=== PATIENT | male | born 1945 | race Caucasian/White ===

== ENCOUNTER 2018-04-25 13:29 | Inpatient (IN) | payer OTHER, MEDICAID ==
[2018-04-25] MEDS: ACETAMINOPHEN 500 MG TAB PO ×2 (14:28→16:11)
[2018-04-25] MEDS: SODIUM CHLORIDE 0.9% 1L BAG IV* (14:28)
[2018-04-25] MEDS: IBUPROFEN 800 MG TAB PO (14:28)
[2018-04-25 14:36] LABS: ADD MAN DIFF? NO
[2018-04-25 14:40] LABS: WHITE BLOOD COUNT 15.8 10^3/ul (4.8-10.8)
[2018-04-25 14:40] LABS: BASOPHILS % 0.3 % (0.0-2.0); EOSINOPHILS % 0.1 % (0.0-7.0); HEMOGLOBIN 12.4 g/dl (14.0-18.0); LYMPHOCYTES # 0.7 10^3/ul (0.8-2.9); LYMPHOCYTES % 4.5 % (15.0-51.0); MEAN CORPUSCULAR HEMOGLOBIN 29.8 pg (29.0-33.0); MEAN CORPUSCULAR HGB CONC 32.6 g/dl (32.0-37.0); MEAN CORPUSCULAR VOLUME 91.3 fl (82.0-101.0); MONOCYTE # 0.6 10^3/ul (0.3-0.9); MONOCYTES % 3.9 % (0.0-11.0); NEUTROPHIL # 14.3 10^3/ul (1.6-7.5); NEUTROPHILS % 90.6 % (39.0-77.0); PLATELET COUNT 304 10^3/UL (140-415); RED BLOOD COUNT 4.16 10^6/ul (4.70-6.10); RED CELL DISTRIBUTION WIDTH 12.3 % (11.5-14.5)
[2018-04-25 14:52] LABS: ADD UMIC YES; UR ASCORBIC ACID 20 mg/dL (NEGATIVE); UR BILIRUBIN (Dip) NEGATIVE (NEGATIVE); UR BLOOD (Dip) 1+ mg/dL (NEGATIVE); UR CLARITY SLIGHTLY CLOUDY (CLEAR); UR COLOR YELLOW (YELLOW); UR GLUCOSE (Dip) NEGATIVE (NEGATIVE); UR KETONES (Dip) 1+ mg/dL (NEGATIVE); UR LEUKOCYTE ESTERASE (Dip) NEGATIVE Leu/ul (NEGATIVE); UR MUCUS MODERATE /HPF (NONE SEEN); UR NITRITE (Dip) NEGATIVE (NEGATIVE); UR RBC 7 /HPF (0-5); UR SPECIFIC GRAVITY (Dip) 1.023 (1.003-1.030); UR TOTAL PROTEIN (Dip) 1+ mg/dl (NEGATIVE); UR UROBILINOGEN (Dip) 1+ mg/dL (NEGATIVE); UR WBC 3 /HPF (0-5)
[2018-04-25 14:57] LABS: ALANINE AMINOTRANSFERASE 35 IU/L (13-69); ALBUMIN 4.7 g/dl (3.3-4.9); ALBUMIN/GLOBULIN RATIO 1.09; ALKALINE PHOSPHATASE 221 IU/L (42-121); ANION GAP 16 (5-13); ASPARTATE AMINO TRANSFERASE 55 IU/L (15-46); BILIRUBIN,INDIRECT 0.6 mg/dl (0-1.1); BILIRUBIN,TOTAL 0.6 mg/dl (0.2-1.3); BLOOD UREA NITROGEN 18 mg/dl (7-20); CALCIUM 9.7 mg/dl (8.4-10.2); CARBON DIOXIDE 24 mmol/L (21-31); CHLORIDE 101 mmol/L (97-110); CREATININE 1.08 mg/dl (0.61-1.24); Estimated GFR > 60 mL/min (>60); GLUCOSE 133 mg/dl (70-220); POTASSIUM 3.6 mmol/L (3.5-5.1); SODIUM 141 mmol/L (135-144)
[2018-04-25 15:00] LABS: INR 0.98; PROTIME 13.1 Sec (11.9-14.9)
[2018-04-25 15:01] LABS: PARTIAL THROMBOPLASTIN TIME 31.9 Sec (23.0-35.0)
[2018-04-25 15:08] LABS: TROPONIN-I < 0.012 ng/ml (0.000-0.120)
[2018-04-25] MEDS: SOD CHLORIDE 0.9% 100 ML (17:22)
[2018-04-25] MEDS: IOHEXOL 300MG/ML 150 ML BTL (17:23)
[2018-04-25] MEDS: PIPER-TAZO 3.375 GM IV (PMX) 100 ML IVPB (17:45)
[2018-04-25] MEDS ORDERED: ACETAMINOPHEN 325 MG TAB PO (18:30)
[2018-04-25] MEDS ORDERED: ONDANSETRON 4 MG INJ IV ×2 (18:30→19:00)
[2018-04-25] MEDS: VANCOMYCIN 1 GM (PMX) 250 ML IVPB (18:44)
[2018-04-25] MEDS ORDERED: NACL 0.9% 3 ML SYG IV (19:00)
[2018-04-25] MEDS ORDERED: HYDROCODONE/APAP (5/325) TAB PO (19:00)
[2018-04-25 20:33] LABS: LACTIC ACID 0.9 mmol/L (0.5-2.0)
[2018-04-25] MEDS: GUAIFENESIN/CODEINE 5ML CUP PO (22:40)
[2018-04-26] MEDS: PIPER-TAZO 3.375 GM IV (PMX) 100 ML IVPB ×5 (00:59→23:27)
[2018-04-26] MEDS ORDERED: ZOLPIDEM 5 MG TAB PO (03:30)
[2018-04-26 06:21] LABS: ADD MAN DIFF? NO
[2018-04-26 06:27] LABS: WHITE BLOOD COUNT 12.2 10^3/ul (4.8-10.8)
[2018-04-26 06:27] LABS: BASOPHILS % 0.3 % (0.0-2.0); EOSINOPHILS # 0.1 10^3/ul (0.0-0.5); EOSINOPHILS % 0.8 % (0.0-7.0); HEMATOCRIT 34.2 % (42.0-52.0); LYMPHOCYTES # 1.9 10^3/ul (0.8-2.9); LYMPHOCYTES % 15.4 % (15.0-51.0); MEAN CORPUSCULAR HEMOGLOBIN 29.8 pg (29.0-33.0); MEAN CORPUSCULAR HGB CONC 32.2 g/dl (32.0-37.0); MEAN CORPUSCULAR VOLUME 92.7 fl (82.0-101.0); MEAN PLATELET VOLUME 10.3 fl (7.4-10.4); MONOCYTE # 1.1 10^3/ul (0.3-0.9); MONOCYTES % 8.7 % (0.0-11.0); NEUTROPHIL # 9.1 10^3/ul (1.6-7.5); NEUTROPHILS % 74.6 % (39.0-77.0); PLATELET COUNT 248 10^3/UL (140-415); RED BLOOD COUNT 3.69 10^6/ul (4.70-6.10); RED CELL DISTRIBUTION WIDTH 12.6 % (11.5-14.5)
[2018-04-26 06:40] LABS: ALANINE AMINOTRANSFERASE 32 IU/L (13-69); ALBUMIN 3.6 g/dl (3.3-4.9); ALKALINE PHOSPHATASE 162 IU/L (42-121); ANION GAP 11 (5-13); ASPARTATE AMINO TRANSFERASE 35 IU/L (15-46); BILIRUBIN,INDIRECT 0.4 mg/dl (0-1.1); BILIRUBIN,TOTAL 0.4 mg/dl (0.2-1.3); BLOOD UREA NITROGEN 11 mg/dl (7-20); CALCIUM 8.6 mg/dl (8.4-10.2); CARBON DIOXIDE 25 mmol/L (21-31); CHLORIDE 110 mmol/L (97-110); CREATININE 0.86 mg/dl (0.61-1.24); Estimated GFR > 60 mL/min (>60); GLUCOSE 109 mg/dl (70-220); MAGNESIUM 2.2 mg/dl (1.7-2.5); POTASSIUM 3.9 mmol/L (3.5-5.1); SODIUM 146 mmol/L (135-144); TOTAL PROTEIN 7.2 g/dl (6.1-8.1)
[2018-04-26 06:47] LABS: HEMOGLOBIN A1C 5.8 % (0-5.9)
[2018-04-26] MEDS: FISH OIL 1,000 MG CAP PO ×2 (08:26→20:22)
[2018-04-26] MEDS: VANCOMYCIN 750 MG (PMX) 250 ML IVPB ×2 (08:27→20:20)
[2018-04-26] MEDS ORDERED: VANCOMYCIN IV PER PHARMACY XX (09:00)
[2018-04-26] MEDS: ACETAMINOPHEN 325 MG TAB PO (16:09)
[2018-04-27 05:40] LABS: ADD MAN DIFF? NO
[2018-04-27] MEDS: PIPER-TAZO 3.375 GM IV (PMX) 100 ML IVPB ×3 (05:40→18:13)
[2018-04-27 05:43] LABS: BASOPHILS % 0.5 % (0.0-2.0); EOSINOPHILS # 0.1 10^3/ul (0.0-0.5); EOSINOPHILS % 1.7 % (0.0-7.0); HEMATOCRIT 32.1 % (42.0-52.0); HEMOGLOBIN 10.6 g/dl (14.0-18.0); LYMPHOCYTES % 24.1 % (15.0-51.0); MEAN CORPUSCULAR VOLUME 90.9 fl (82.0-101.0); MEAN PLATELET VOLUME 10.2 fl (7.4-10.4); MONOCYTE # 0.7 10^3/ul (0.3-0.9); MONOCYTES % 9.1 % (0.0-11.0); NEUTROPHIL # 5.2 10^3/ul (1.6-7.5); PLATELET COUNT 254 10^3/UL (140-415); RED BLOOD COUNT 3.53 10^6/ul (4.70-6.10); RED CELL DISTRIBUTION WIDTH 12.7 % (11.5-14.5)
[2018-04-27 05:43] LABS: WHITE BLOOD COUNT 8.2 10^3/ul (4.8-10.8)
[2018-04-27 06:06] LABS: PHOSPHORUS 3.7 mg/dl (2.5-4.9)
[2018-04-27 06:06] LABS: MAGNESIUM 2.1 mg/dl (1.7-2.5)
[2018-04-27 06:07] LABS: ANION GAP 12 (5-13); BLOOD UREA NITROGEN 5 mg/dl (7-20); CALCIUM 8.8 mg/dl (8.4-10.2); CARBON DIOXIDE 25 mmol/L (21-31); CHLORIDE 107 mmol/L (97-110); CREATININE 0.93 mg/dl (0.61-1.24); Estimated GFR > 60 mL/min (>60); GLUCOSE 93 mg/dl (70-220); SODIUM 144 mmol/L (135-144)
[2018-04-27] MEDS: VANCOMYCIN 750 MG (PMX) 250 ML IVPB ×2 (08:01→20:00)
[2018-04-27] MEDS: FISH OIL 1,000 MG CAP PO ×2 (08:40→19:58)
[2018-04-27 08:54] LABS: CREATININE 0.91 mg/dl (0.61-1.24)
[2018-04-27 08:54] LABS: BLOOD UREA NITROGEN 6 mg/dl (7-20)
[2018-04-27 09:00] LABS: VANCOMYCIN,TROUGH 10.6 ug/ml (10.0-20.0)
[2018-04-27] MEDS: POTASSIUM CHLORIDE (SR) 20 MEQ TAB PO (11:30)
[2018-04-28] MEDS: PIPER-TAZO 3.375 GM IV (PMX) 100 ML IVPB ×3 (06:21→11:34)
[2018-04-28] MEDS: VANCOMYCIN 750 MG (PMX) 250 ML IVPB (08:07)
[2018-04-28] MEDS: FISH OIL 1,000 MG CAP PO (08:07)
[2018-04-28] MEDS: POTASSIUM CHLORIDE (SR) 20 MEQ TAB PO (11:33)
== END 2018-04-28 13:21 | disposition home or self-care (01) | DRG 871 ==
LOC: FTE 13:29 → 6WM 18:26
DX: A41.9 Sepsis, unspecified organism (principal); J18.9 Pneumonia, unspecified organism; I10 Essential (primary) hypertension
CPT/HCPCS: 36415; 71045; 71260; 80048; 80053; 80202; 81001; 82565; 83036; 83605; 83735; 84100; 84484; 84520; 85025; 85610; 85730; 87040; 87086; 87400; 93005; 96374; 97161; 99291-25